=== PATIENT | female | born 1970 | race African-American/Black ===

== ENCOUNTER 2016-12-08 16:28 | Emergency (ER) | payer MEDICAID ==
[2016-12-08 16:47] VITALS: BP 127/70
[2016-12-08] MEDS ORDERED: OXYCODONE-ACETAMINOPHEN 5-325 MG TABLET PO ONE (17:12)
--- NOTE | 2016-12-08 17:57 | RADIOLOGY REPORT (SQ) ---
EXAM DESCRIPTION: ANKLE RIGHT COMPLETE COMPLETED DATE/TIME: 12/08/2016 5:50 pm REASON FOR STUDY: pain COMPARISON: None. NUMBER OF VIEWS: Three views. TECHNIQUE: AP, lateral, and oblique radiographic images acquired of the right ankle. LIMITATIONS: None. FINDINGS: MINERALIZATION: Osteopenia. BONES: No acute fracture or dislocation. No worrisome bone lesions. Orthopedic hardware from prior trauma. JOINTS: No effusions. SOFT TISSUES: Massive soft tissue swelling. OTHER: No other significant finding. IMPRESSION: Massive soft tissue swelling. No identified acute fracture. TECHNICAL DOCUMENTATION: JOB ID: [id number] [employer]- All Rights Reserved
--- NOTE | 2016-12-08 18:12 | ER Document Report ---
ED Extremity Problem, Lower - General Chief Complaint: Ankle Pain Stated Complaint: FALL/RIGHT ANKLE INJURY Time Seen by Provider: 12/08/16 17:07 TRAVEL OUTSIDE OF THE [place] IN LAST 30 DAYS: No - HPI Patient complains to provider of: Injury Location: Ankle Occurred: Just prior to arrival Onset/Duration: Sudden Quality of pain: Achy Context: Twisted - right ankle Recent injury: Yes Associated symptoms: Painful ambulation Exacerbated by: Hanging down, Movement, Walking Relieved by: Elevation, Ice, Rest - Related Data Allergies/Adverse Reactions: No Known Allergies Allergy (Unverified 12/08/16 16:46) Past Medical History - Social History Smoking Status: Unknown if Ever Smoked Family History: Reviewed & Not Pertinent Renal/ Medical History: Denies: Hx Peritoneal Dialysis Review of Systems - Review of Systems Constitutional: No symptoms reported Musculoskeletal: See HPI Neurological/Psychological: No symptoms reported -: Yes All other systems reviewed and negative Physical Exam - Vital signs Vitals: Temp Pulse Resp BP Pulse Ox 98.1 F 101 H 16 127/70 H 100 12/08/16 16:46 12/08/16 16:46 12/08/16 16:46 12/08/16 16:46 12/08/16 16:46 - General General appearance: Appears well, Alert In distress: None - Cardiovascular Pulses: Normal: Dorsalis pedis Normal capillary refill: Yes - Extremities General upper extremity: Normal inspection, Nontender, Normal color, Normal ROM , Normal strength, Normal temperature General lower extremity: Normal ROM. No: Normal inspection - moderate soft tissue swelling of b/l LE's, Danielle's sign Calf: Other - no edema but moderate soft tissue of the calves and ankles Ankle: Tender - anterior of her ankle with pain readaiting to the base of her tibia. No: Deformity, Edema, Limited ROM, Positive Jay's test Foot: Normal, Nontender. No: Deformity, Edema, Metatarsal compress. pain - Neurological Neuro grossly intact: Yes Cognition: Normal Orientation: AAOx4 Bakari Coma Scale Eye Opening: Spontaneous [place] Coma Scale Verbal: Oriented Bakari Coma Scale Motor: Obeys Commands [place] Coma Scale Total: 15 Motor strength normal: LUE, RUE, LLE, RLE Sensory: Normal - Skin Skin Temperature: Warm Skin Moisture: Dry Skin Color: Normal Skin Turgor: Elastic Course - Re-evaluation Re-evalutation: 12/08/16 20:38 Patient is a 46-year-old female hemodynamic stable, no acute distress and afebrile. Well score 0. Evidence of DVT diffusely swollen legs bilaterally without pitting edema. No evidence of fracture dislocation noted on x-ray. Patient educated on RICE for treatment of her ankle sprain. Patient states she is crutches in the car. Will refer to [facility] for follow-up. - Vital Signs Vital signs: Temp Pulse Resp BP Pulse Ox 98.1 F 101 H 16 127/70 H 100 12/08/16 16:46 12/08/16 16:46 12/08/16 16:46 12/08/16 16:46 12/08/16 16:46 - Diagnostic Test Radiology reviewed: Image reviewed, Reports reviewed Discharge - Discharge Clinical Impression: Ankle pain Qualifiers: Chronicity: acute Laterality: right Qualified Code(s): M25.571 - Pain in right ankle and joints of right foot Condition: Good Disposition: HOME, SELF-CARE Instructions: Gilbert Wrap ([facility]), Use of Crutches ([facility]), Ice & Elevation ([facility]), Sprained Ankle ([facility]), Use of Nwjn-Kqh-Chwxlfx Ibuprofen ([facility]) Referrals: [facility] [Provider Group] - Follow up in 1 week
== END 2016-12-08 18:25 | disposition home or self-care (01) ==
LOC: ER 16:28
DX: S93.401A Sprain of unspecified ligament of right ankle, initial encounter (principal); M25.571 Pain in right ankle and joints of right foot; X50.1XXA Overexertion from prolonged static or awkward postures, initial encounter
CPT/HCPCS: 99283

== ENCOUNTER 2017-08-21 14:42 | Emergency (ER) | payer MEDICAID ==
[2017-08-21] MEDS ORDERED: LIDOCAINE 2% VISCOUS SOLN 20 ML UDCUP PO ONE (15:53)
[2017-08-21] MEDS ORDERED: MAG HYDROX/AL HYDROX/SIMETH SUSP 30 ML UDCUP PO ONE (15:53)
[2017-08-21] MEDS ORDERED: NAPROXEN 250 MG TABLET PO ONE (15:53)
[2017-08-21] MEDS ORDERED: DIPHENHYDRAMINE HCL 25 MG CAPSULE PO ONE (15:53)
[2017-08-21] MEDS ORDERED: PROCHLORPERAZINE MALEATE 10 MG TABLET PO ONE (15:53)
--- NOTE | 2017-08-21 15:55 | ER Document Report ---
ED Medical Screen (RME) - General Chief Complaint: Abdominal Pain Stated Complaint: HEADACHE,NAUSEA,ABDOMINAL PAIN Time Seen by Provider: 08/21/17 15:47 Notes: 46-year-old female patient reports onset this morning of headache, nauseousness , dizzy sensation and abdominal pain. She reports the abdominal pain is due to her having an ulcer. She takes Prilosec at this time, you should take Dexilant but could not afford to continue it. She states the back of her neck hurts and light hurts her eyes. She does have a history of these headaches on a daily basis but this 1 is worse than usual. Brief exam shows the left posterior cervical and trapezius muscles to be tender to palpate. I have greeted and performed a rapid initial assessment of this patient. A comprehensive ED assessment and evaluation of the patient, analysis of test results and completion of the medical decision making process will be conducted by additional ED providers. TRAVEL OUTSIDE OF THE [place] IN LAST 30 DAYS: No - Related Data Allergies/Adverse Reactions: No Known Allergies Allergy (Verified 08/21/17 14:43) Past Medical History - Social History Frequency of alcohol use: Social Drug Abuse: None Renal/ Medical History: Denies: Hx Peritoneal Dialysis Past Surgical History: Reports: Hx Orthopedic Surgery - ankle, tib/fib Physical Exam - Vital signs Vitals: Temp Pulse Resp BP Pulse Ox 97.9 F 72 18 139/99 H 100 08/21/17 14:46 08/21/17 14:46 08/21/17 14:46 08/21/17 14:46 08/21/17 14:46 Course - Vital Signs Vital signs: Temp Pulse Resp BP Pulse Ox 97.9 F 72 18 139/99 H 100 08/21/17 14:46 08/21/17 14:46 08/21/17 14:46 08/21/17 14:46 08/21/17 14:46
[2017-08-21] MEDS ORDERED: NORMAL SALINE 1000 ML 1,000 ML IV ONE (16:56)
--- NOTE | 2017-08-21 17:34 | ER Document Report ---
ED Headache - General Chief Complaint: Abdominal Pain Stated Complaint: HEADACHE,NAUSEA,ABDOMINAL PAIN Time Seen by Provider: 08/21/17 15:47 Mode of Arrival: Ambulatory Information source: Patient Notes: 46-year-old female with a chronic daily headache, today in the left parietal left posterior occipital and left eye, when she woke up this morning 2/5 and gradually increased to 5/5 associated with nausea dizziness and some abdominal pain. Her physician had offered her daily preventative medication several months ago but she never filled it. No vertigo. No visual disturbances. No chest pain or shortness of breath. No vomiting or diarrhea. No fever or chills. TRAVEL OUTSIDE OF THE [place] IN LAST 30 DAYS: No - Related Data Allergies/Adverse Reactions: No Known Allergies Allergy (Verified 08/21/17 14:43) Past Medical History - General Information source: Patient - Social History Smoking Status: Current Every Day Smoker Frequency of alcohol use: Social Drug Abuse: None Lives with: Family Family History: Reviewed & Not Pertinent Patient has suicidal ideation: No Patient has homicidal ideation: No - Medical History Medical History: Negative Renal/ Medical History: Denies: Hx Peritoneal Dialysis Past Surgical History: Reports: Hx Orthopedic Surgery - ankle, tib/fib Review of Systems - Review of Systems Constitutional: No symptoms reported EENT: No symptoms reported Cardiovascular: No symptoms reported Respiratory: No symptoms reported Gastrointestinal: See HPI Genitourinary: No symptoms reported Female Genitourinary: No symptoms reported Musculoskeletal: No symptoms reported Skin: No symptoms reported Hematologic/Lymphatic: No symptoms reported Neurological/Psychological: See HPI Physical Exam - Vital signs Vitals: Temp Pulse Resp BP Pulse Ox 97.9 F 72 18 139/99 H 100 08/21/17 14:46 08/21/17 14:46 08/21/17 14:46 08/21/17 14:46 08/21/17 14:46 Interpretation: Normal - General General appearance: Appears well, Alert - HEENT Head: Normocephalic, Atraumatic Eyes: Normal Conjunctiva: Normal Extraocular movements intact: Yes Pupils: PERRL Tympanic membrane: Normal Pharynx: Normal Neck: Supple. No: Lymphadenopathy - Respiratory Respiratory status: No respiratory distress Chest status: Nontender Breath sounds: Normal Chest palpation: Normal - Cardiovascular Rhythm: Regular Heart sounds: Normal auscultation Murmur: No - Abdominal Inspection: Normal Distension: No distension Bowel sounds: Normal Tenderness: Nontender. No: Tender Organomegaly: No organomegaly - Back Back: Normal, Nontender. No: CVA tenderness - Extremities General upper extremity: Normal inspection, Nontender, Normal color, Normal ROM , Normal temperature General lower extremity: Normal inspection, Nontender, Normal color, Normal ROM , Normal temperature, Normal weight bearing. No: Danielle's sign - Neurological Neuro grossly intact: Yes Cognition: Normal Orientation: AAOx4 [place] Coma Scale Eye Opening: Spontaneous Bakari Coma Scale Verbal: Oriented Bakari Coma Scale Motor: Obeys Commands Bakari Coma Scale Total: 15 Speech: Normal Motor strength normal: LUE, RUE, LLE, RLE Sensory: Normal - Psychological Associated symptoms: Normal affect, Normal mood - Skin Skin Temperature: Warm Skin Moisture: Dry Skin Color: Normal Course - Re-evaluation Re-evalutation: 08/21/17 19:51 Labs are normal except for 12 RBCs in the urine with a trace of bacteria urine culture has been sent. The patient does feel better headache is 3/5 since it has been 4 hours since she received oral Benadryl and oral Compazine I am giving Reglan IV and Benadryl IV which will hopefully reduce the headache to 1/ 2 she is getting IV fluid. 08/21/17 20:14 Patient's headache is down to 1 she feels much better after the Benadryl and Reglan she is hungry would give her some chips and apple juice to drink she is ready for discharge plan has been discussed with her and she will see her doctor tomorrow. - Vital Signs Vital signs: Temp Pulse Resp BP Pulse Ox 98.5 F 84 18 125/77 99 08/21/17 20:22 08/21/17 20:22 08/21/17 14:46 08/21/17 20:22 08/21/17 20:22 - Laboratory Result Diagrams: 08/21/17 18:06 08/21/17 18:06 Laboratory results interpreted by me: 08/21/17 08/21/17 18:06 18:06 Hgb 11.8 L RDW 14.6 H Glucose 73 L Total Protein 6.0 L Albumin 3.4 L Discharge - Discharge Clinical Impression: Chronic daily headache, Nausea Abdominal pain Qualifiers: Abdominal location: upper abdomen, unspecified Qualified Code(s): R10.10 - Upper abdominal pain, unspecified Condition: Good Disposition: HOME, SELF-CARE Instructions: Abdominal Pain ([facility]), Acetaminophen, Intravenous Compazine for Headaches ([facility]), Headache ([facility]), Use of Rbaa-Lpx-Ksznpsz Ibuprofen ([facility]), Nausea or Vomiting, Nonspecific ([facility]), Reglan ([facility]) Additional Instructions: warm compress to er if worse See your provider tomorrow and get on the chronic headache preventive treatment plan that he had prescribed in the past Call and get a appointment with a neurologist for this chronic daily headache Plenty of fluids [id number] Tylenol and Motrin for headache Referrals: DORIS BATISTA MD [NO LOCAL MD] - Follow up tomorrow (call for appointment with neurologist for the chronic daily headache ) CORINE SANCHEZ PA-C [Primary Care Provider] - Follow up tomorrow (see your doctor and get on preventive headache medicine that he wanted to start you on)
[2017-08-21 17:57] LABS: APPEARANCE,URINE SLIGHTLY-CLOUDY; BILIRUBIN,URINE NEGATIVE (NEGATIVE); COLOR,URINE YELLOW; GLUCOSE, URINE NEGATIVE (NEGATIVE); KETONES,URINE NEGATIVE (NEGATIVE); LEUKOCYTE ESTERASE,URINE NEGATIVE (NEGATIVE); NITRITE,URINE NEGATIVE (NEGATIVE); PROTEIN,URINE NEGATIVE (NEGATIVE); URINE SPECIFIC GRAVITY 1.015; UROBILINOGEN,URINE NEGATIVE mg/dL (<2.0)
[2017-08-21] MEDS ORDERED: ONDANSETRON 4 MG TAB.RAPDIS PO ONE (18:09)
[2017-08-21 19:20] LABS: ABSOLUTE EOSINOPHILS # (AUTO) 0.1 10^3/uL (0.0-0.6); ABSOLUTE LYMPHOCYTES (AUTO) 1.3 10^3/uL (0.5-4.7); ABSOLUTE MONOCYTES (AUTO) 0.3 10^3/uL (0.1-1.4); ABSOLUTE NEUT (AUTO) 3.6 10^3/uL (1.7-8.2); BASOPHILS % (AUTO) 0.3 % (0-2); EOSINOPHILS % (AUTO) 1.2 % (0-6); HEMATOCRIT 36.4 % (36.0-47.0); HEMOGLOBIN 11.8 g/dL (12.0-15.5); MEAN CORPUSCULAR HEMOGLOBIN 28.6 pg (27.0-33.4); MEAN CORPUSCULAR HGB CONC 32.3 g/dL (32.0-36.0); MEAN CORPUSCULAR VOLUME 88 fl (80-97); MONOCYTES % (AUTO) 5.1 % (3-13); PLATELET COUNT 193 10^3/uL (150-450); RED BLOOD COUNT 4.12 10^6/uL (3.72-5.28); RED CELL DISTRIBUTION WIDTH 14.6 % (11.5-14.0); SEGMENTED NEUTROPHILS % (AUTO) 68.4 % (42-78); TOTAL CELLS COUNTED % (AUTO) 100 %; WHITE BLOOD COUNT 5.2 10^3/uL (4.0-10.5)
[2017-08-21 19:40] LABS: ALANINE AMINOTRANSFERASE 23 U/L (9-52); ALBUMIN 3.4 g/dL (3.5-5.0); ALKALINE PHOSPHATASE 64 U/L (38-126); ANION GAP 8 (5-19); ASPARTATE AMINO TRANSFERASE 17 U/L (14-36); BILIRUBIN,DIRECT 0.3 mg/dL (0.0-0.4); BILIRUBIN,TOTAL 0.6 mg/dL (0.2-1.3); BLOOD UREA NITROGEN 10 mg/dL (7-20); CALCIUM 9.6 mg/dL (8.4-10.2); CARBON DIOXIDE 27 mmol/L (22-30); CHLORIDE 107 mmol/L (98-107); GLUCOSE 73 mg/dL (75-110); LIPASE 103.1 U/L (23-300); POTASSIUM 4.2 mmol/L (3.6-5.0); SODIUM 141.8 mmol/L (137-145)
[2017-08-21] MEDS ORDERED: DIPHENHYDRAMINE HCL 50 MG/ML VIAL IV ONE ×2 (19:46→19:47)
[2017-08-21] MEDS ORDERED: METOCLOPRAMIDE HCL INJ/PF 10 MG/2 ML SDV IV ONE (19:47)
[2017-08-21 20:24] VITALS: BP 125/77
== END 2017-08-21 20:21 | disposition home or self-care (01) ==
LOC: ER 14:42
DX: R10.10 Upper abdominal pain, unspecified (principal); R51 Headache; R11.0 Nausea; R42 Dizziness and giddiness; F17.200 Nicotine dependence, unspecified, uncomplicated
CPT/HCPCS: 99284; 96361; 96374; 96375; 36415; 87086; 83690; 85025; 80053; 81001; J3490 ×4; J1200; S0119; J2765; S0183; J7030

== ENCOUNTER → 2017-10-16 | Outpatient (CLI) | payer MEDICAID ==
--- NOTE | 2017-10-17 08:50 | XCELERA REPORT ---
[address] [address] Tel: [phone] Fax: [phone] Lower Extremity Arterial Evaluation Name: CONTRERAS THOMPSON Age: 46 yrs Gender: Female : 1970 Patient Status: Outpatient Patient Location: [facility] Study Date: 10/16/2017 03:09 PM Procedure: Ankle brachial indicies performed. Reason For Study: PVD Ordering Physician: CORINE SANCHEZ PA-C Performed By: Desiree Mackenzie Right Side Arterial Evaluation BETTY in Posterior Tibial:1.03. Multiphasic waveform. Left Side Arterial Evaluation BETTY in Posterior Tibial:1.03. Multiphasic waveform. Interpretation Summary Normal BETTY. Suggesting normal arterial system, within the limitations of this technique. : CORINE SANCHEZ PA-C > Pedro Leary
== END ==
LOC: SP 13:31
PROVIDERS: ATTEND Physician Assistant
DX: I73.9 Peripheral vascular disease, unspecified (principal); M79.669 Pain in unspecified lower leg
CPT/HCPCS: 93922

== ENCOUNTER 2018-11-09 07:55 | Day surgery (SDC) | payer MEDICAID ==
[2018-11-03 11:43] LABS: ABSOLUTE EOSINOPHILS # (AUTO) 0.1 10^3/uL (0.0-0.6); ABSOLUTE MONOCYTES (AUTO) 0.3 10^3/uL (0.1-1.4); ABSOLUTE NEUT (AUTO) 1.5 10^3/uL (1.7-8.2); BASOPHILS % (AUTO) 0.5 % (0-2); EOSINOPHILS % (AUTO) 1.3 % (0-6); HEMATOCRIT 33.7 % (36.0-47.0); HEMOGLOBIN 10.9 g/dL (12.0-15.5); LYMPHOCYTES % (AUTO) 51.6 % (13-45); MEAN CORPUSCULAR HGB CONC 32.4 g/dL (32.0-36.0); MEAN CORPUSCULAR VOLUME 86 fl (80-97); MONOCYTES % (AUTO) 6.9 % (3-13); PLATELET COUNT 200 10^3/uL (150-450); RED BLOOD COUNT 3.91 10^6/uL (3.72-5.28); RED CELL DISTRIBUTION WIDTH 15.6 % (11.5-14.0); SEGMENTED NEUTROPHILS % (AUTO) 39.7 % (42-78); TOTAL CELLS COUNTED % (AUTO) 100 %; WHITE BLOOD COUNT 3.9 10^3/uL (4.0-10.5)
--- NOTE | 2018-11-03 12:06 | RADIOLOGY REPORT (SQ) ---
EXAM DESCRIPTION: CHEST PA/LATERAL COMPLETED DATE/TIME: 11/03/2018 11:47 am REASON FOR STUDY: PRE-OP COMPARISON: AP chest 12/08/2008 EXAM PARAMETERS: NUMBER OF VIEWS: two views TECHNIQUE: Digital Frontal and Lateral radiographic views of the chest acquired. RADIATION DOSE: NA LIMITATIONS: none FINDINGS: LUNGS AND PLEURA: No opacities, masses or pneumothorax. No pleural effusion. MEDIASTINUM AND HILAR STRUCTURES: No masses or contour abnormalities. HEART AND VASCULAR STRUCTURES: Heart normal size. No evidence for failure. BONES: No acute findings. HARDWARE: None in the chest. OTHER: No other significant finding. IMPRESSION: NO SIGNIFICANT RADIOGRAPHIC FINDING IN THE CHEST. TECHNICAL DOCUMENTATION: JOB ID: [id number] [employer]- All Rights Reserved Reading location - IP/workstation name: [email or web address]
[2018-11-03 12:41] LABS: BLOOD UREA NITROGEN 8 mg/dL (7-20); CALCIUM 9.5 mg/dL (8.4-10.2); CARBON DIOXIDE 28 mmol/L (22-30); CHLORIDE 107 mmol/L (98-107); GLUCOSE 84 mg/dL (75-110)
[2018-11-03 12:50] LABS: ANION GAP 4 (5-19); POTASSIUM 4.5 mmol/L (3.6-5.0); SODIUM 138.9 mmol/L (137-145)
--- NOTE | 2018-11-03 20:33 | EKG REPORT ---
SEVERITY:- NORMAL ECG - SINUS RHYTHM : Confirmed by: Renae Person 03-Nov-2018 20:32:23
[~2018-11-09 07:55] MED LIST: BUPIVACAINE HCL 0.25% /EPINEPHRINE INJ/PF 30 ML SDV ONE; CEFAZOLIN 2 GM/D5W RTU 2 GM/50 ML RTUPB IV ONE; CEFAZOLIN 2 GM/D5W RTU 2 GM/50 ML RTUPB IV PRN; DEXAMETHASONE SOD PHOSPHATE INJ 4 MG/1 ML VIAL ONE; FENTANYL CITRATE INJ/PF 100 MCG/2 ML AMPUL ONE; LACTATED RINGERS 1000 ML IV PRN; LIDOCAINE 0.5% INJ-PF (5 MG/ML) 50 ML SDV SUBCUT PRN; MIDAZOLAM 2 MG/2 ML INJ ONE; ONDANSETRON HCL INJ/PF 4 MG/2 ML SDV ONE; PROPOFOL INJ 200 MG/20 ML VIAL IV ONE
[2018-11-09 08:36] LABS: APPEARANCE,URINE SLIGHTLY-CLOUDY; BILIRUBIN,URINE NEGATIVE (NEGATIVE); COLOR,URINE YELLOW; GLUCOSE, URINE NEGATIVE (NEGATIVE); KETONES,URINE NEGATIVE (NEGATIVE); LEUKOCYTE ESTERASE,URINE NEGATIVE (NEGATIVE); NITRITE,URINE NEGATIVE (NEGATIVE); PROTEIN,URINE NEGATIVE (NEGATIVE); URINE SPECIFIC GRAVITY 1.016; UROBILINOGEN,URINE NEGATIVE mg/dL (<2.0)
[2018-11-09] MEDS ORDERED: FENTANYL CITRATE INJ/PF 100 MCG/2 ML AMPUL ONE ×3 (08:46→11:53)
[2018-11-09] MEDS ORDERED: MEPERIDINE HCL/PF INJ 25 MG/1 ML DISP.SYRIN IV PRN (09:46)
[2018-11-09] MEDS ORDERED: PROMETHAZINE HCL INJ 25 MG/1 ML VIAL IV PRN ×2 (09:46)
[2018-11-09] MEDS ORDERED: ONDANSETRON HCL INJ/PF 4 MG/2 ML SDV IV PRN (09:46)
[2018-11-09] MEDS ORDERED: MORPHINE SULFATE 10 MG/ML INJ IV PRN (09:46)
[2018-11-09] MEDS ORDERED: FENTANYL CITRATE INJ/PF 100 MCG/2 ML AMPUL IV PRN ×3 (09:46)
[2018-11-09] MEDS ORDERED: DIPHENHYDRAMINE HCL 50 MG/ML VIAL IV PRN (09:46)
[2018-11-09] MEDS ORDERED: TRANEXAMIC ACID INJ/PF 1,000 MG/10 ML SDV IV ONE (10:22)
--- NOTE | 2018-11-09 10:39 | Discharge Summary ---
Discharge Summary (SDC) - Discharge Final Diagnosis: Posttraumatic arthrosis right ankle Date of Surgery: 11/09/18 Discharge Date: 11/09/18 Condition: Good Treatment or Instructions: Touchdown weightbearing restriction on the right lower extremity. Elevate when possible. Prescriptions: Oxycodone HCl/Acetaminophen [Oxycodon-Acetaminophen 7.5-325] 1 each PO Q6 PRN #40 tablet PRN Reason: Referrals: CORINE SANCHEZ PA-C [Primary Care Provider] - Discharge Diet: As Tolerated, Regular Respiratory Treatments at Home: Deep Breathing/Coughing Discharge Activity: Balance Activity w/Rest, No Driving, No tub bath Home Care Assistance: None Needed Adaptive Devices on Discharge: Axillary Crutches Report the Following to Your Physician Immediately: Shortness of Breath, Fever over 101 Degrees, Drainage-Foul Smelling
--- NOTE | 2018-11-09 10:43 | Operative Report ---
Operative Report DATE OF SURGERY: 11/09/18 PREOPERATIVE DIAGNOSIS: Posttraumatic arthrosis right ankle OPERATION: Right ankle arthroscopy with microfracture of the talus. Removal of medial and lateral plates and screws SURGEON: VERENA WHEAT ANESTHESIA: GA TISSUE REMOVED OR ALTERED: Two plates and 10 screws to CSS ESTIMATED BLOOD LOSS: 75 PROCEDURE: With the patient supine on the operating table the lower extremities prepped and draped in sterile fashion. The ankle is insufflated with accommodation Marcaine, Xylocaine, and epinephrine. Subsequently medial and lateral anterior portals are created for the introduction of arthroscope and debridements mentation. These are inserted and the joint is examined in systematic fashion. Was notable is that the articular cartilage on the tibia appears to be relatively well preserved. Anteriorly the talus articular cartilage seems to be relatively well preserved. However the whole posterior medial corner of the shira us seems to be denuded of articular cartilage with exposed subchondral bone. This is then perforated using microfracture awls. The arthroscopic [place] is removed. A longitudinal incision was made over the medial malleolus. Sharp dissection was carried incision down to the underlying hardware. 3 screws, a plate, and then a fourth final screw removed from the medial malleolus uneventfully. In a similar fashion a longitudinal incision was made over the lateral malleolus. 7 screws and a plate are removed from the lateral malleolus. Wounds irrigated hemostasis obtained with electrocautery. The wounds were closed with interrupted Vicryl followed by marce. A sterile compressive dressing is applied followed by posterior plaster splint. She is returned to the PACU in satisfactory condition.
[2018-11-09] MEDS: HYDROMORPHONE HCL INJ/PF 2 MG/ML AMPULE ONE ×2 (11:15→11:20)
[2018-11-09] MEDS ORDERED: OXYCODONE-ACETAMINOPHEN 5-325 MG TABLET PO PRN (11:27)
[2018-11-09] MEDS ORDERED: OXYCODONE HCL IR 5 MG TABLET PO PRN (11:28)
[2018-11-09] MEDS ORDERED: OXYCODONE HCL IR 5 MG TABLET ONE (11:52)
[2018-11-09] MEDS ORDERED: OXYCODONE-ACETAMINOPHEN 5-325 MG TABLET ONE (11:52)
[2018-11-09] MEDS ORDERED: DIPHENHYDRAMINE HCL 50 MG/ML VIAL ONE (12:18)
[2018-11-09] MEDS ORDERED: SUCCINYLCHOLINE CHLORIDE INJ 200 MG/10 ML VIAL ONE (17:31)
[2018-11-09 18:28] VITALS: BP 143/91
== END 2018-11-09 14:45 | disposition home or self-care (01) ==
LOC: OROUT 07:55
PROVIDERS: ATTEND Orthopaedic Surgery
DX: M19.171 Post-traumatic osteoarthritis, right ankle and foot (principal); S82.841D Displaced bimalleolar fracture of right lower leg, subsequent encounter for closed fracture with routine healing; X58.XXXD Exposure to other specified factors, subsequent encounter; M25.571 Pain in right ankle and joints of right foot; E66.3 Overweight; F17.210 Nicotine dependence, cigarettes, uncomplicated; Z79.899 Other long term (current) drug therapy; Z68.31 Body mass index [BMI] 31.0-31.9, adult
CPT/HCPCS: 93005; 36415; 85025; 81025; 80048; 81001; 71046; 93010; 01464; 20680; 29999; J2250; J3490 ×3; J1100; J1200; J3010; J1170; J0330; J2405; J2704; J0690; 1464